=== PATIENT | male | born 1975 | race Caucasian/White ===

== ENCOUNTER → 2020-11-25 | Outpatient (CLI) | payer OTHER | LOC: EXRD 08:35 | DX: R74.8 Abnormal levels of other serum enzymes (principal); R93.2 Abnormal findings on diagnostic imaging of liver and biliary tract | CPT/HCPCS: 76705 ==

== ENCOUNTER 2021-04-20 20:54 | Observation (INO) | payer OTHER ==
[~2021-04-20] VITALS: Ht 180.3 cm; Wt 124.1 kg
[2021-04-20 22:19] LABS: HEMOGLOBIN 15.9 gm/dl (14.0-17.5); RED BLOOD COUNT 5.24 M/UL (4.20-5.50); WHITE BLOOD COUNT 18.8 K/UL (4.5-11.0)
[2021-04-20 22:44] LABS: BUN/CREATININE RATIO 17 (0-10)
[2021-04-21 08:54] LABS: HEMOGLOBIN 14.6 gm/dl (14.0-17.5); RED BLOOD COUNT 4.88 M/UL (4.20-5.50)
[2021-04-21 08:56] LABS: WHITE BLOOD COUNT 11.5 K/UL (4.5-11.0)
[2021-04-21] MEDS ORDERED: GLUCOPHAGE 500500 MG PO (09:51)
[2021-04-21] MEDS ORDERED: COZAAR 25MG TAB25 MG PO (09:52)
[2021-04-22 02:26] LABS: HEMOGLOBIN 14.2 gm/dl (14.0-17.5); RED BLOOD COUNT 4.72 M/UL (4.20-5.50); WHITE BLOOD COUNT 11.8 K/UL (4.5-11.0)
[2021-04-22 02:44] LABS: BUN/CREATININE RATIO 13 (0-10)
== END 2021-04-22 17:30 | disposition home or self-care (01) ==
LOC: ER1 20:54 → CDU 04-21 00:41 → PROG CARE 04-22 15:14
PROVIDERS: Internal Medicine; Physician Assistant Medical; ADMIT Internal Medicine
DX: I21.4 Non-ST elevation (NSTEMI) myocardial infarction (principal); I47.1 Supraventricular tachycardia; I45.6 Pre-excitation syndrome; I10 Essential (primary) hypertension; U07.1 COVID-19; E11.9 Type 2 diabetes mellitus without complications; Z79.84 Long term (current) use of oral hypoglycemic drugs; Z79.899 Other long term (current) drug therapy
CPT/HCPCS: ECHO; 71045; 80048; 80053; 80061; 82550; 82553; 82962; 83735; 83874; 84439; 84443; 84484; 85025; 85027; 85610; 85730; 93005; 93306; 99285; G0378; J0153; J1644; U0002

== ENCOUNTER → 2021-07-02 | Outpatient (CLI) | payer OTHER ==
[~2021-07-02] MED LIST: COZAAR 25MG TAB25 MG PO; GLUCOPHAGE 500500 MG PO
== END ==
LOC: NM 13:00
DX: I45.6 Pre-excitation syndrome (principal); R94.31 Abnormal electrocardiogram [ECG] [EKG]; R07.9 Chest pain, unspecified
CPT/HCPCS: 78452; 93017; A9502

== ENCOUNTER → 2021-09-16 | Outpatient (CLI) | payer BC | LOC: KOH-I 09-14 08:30 | DX: R10.9 Unspecified abdominal pain (principal); N13.2 Hydronephrosis with renal and ureteral calculous obstruction | CPT/HCPCS: 74176 ==